=== PATIENT | female | born 1995 | race Caucasian/White ===

== ENCOUNTER 2017-06-23 10:50 | Emergency (ER) | payer MEDICAID ==
[2017-06-23 10:50] VITALS: BMI 23.3
[2017-06-23 11:13] VITALS: BP 114/58; PULSE 101; RESP 18; TEMP 98.6; O2SAT 100
[2017-06-23] MEDS ORDERED: Lidocaine 1% Inj (20ml) IJ ONE (12:05)
[2017-06-23] MEDS ORDERED: Lidocaine 1% Inj (20ml) ONE (12:13)
--- NOTE | 2017-06-23 12:27 | ED PDOC ---
HPI: General Adult Time Seen by Provider: 06/23/17 11:25 Chief Complaint (Nursing): Abnormal Skin Integrity History Per: Patient Additional Complaint(s): Pt. states last night she tripped and fell injuring her R upper lip. Pt. states she did not lose consciousness and she does not have a headache. Denies LOC, neck pain, other injury. Past Medical History Reviewed: Historical Data, Nursing Documentation, Vital Signs Vital Signs: Last Vital Signs Temp 98.6 F 06/23/17 11:07 Pulse 101 H 06/23/17 11:07 Resp 18 06/23/17 11:07 BP 114/58 L 06/23/17 11:07 Pulse Ox 100 06/23/17 12:27 - Family History Family History: States: No Known Family Hx - Home Medications Home Medications: Ambulatory Orders Medication Instructions Recorded Amoxicillin [Amoxil 500 mg Cap] 500 mg PO Q8 #30 cap 06/23/17 - Allergies Allergies/Adverse Reactions: Allergies Allergy/AdvReac Type Severity Reaction Status Date / Time No Known Allergies Allergy Verified 06/23/17 11:25 Review of Systems ROS Statement: Except As Marked, All Systems Reviewed And Found Negative Physical Exam - Physical Exam Appears: Positive for: Well, Non-toxic, No Acute Distress Head Exam: Positive for: ATRAUMATIC, NORMAL INSPECTION, NORMOCEPHALIC Skin: Positive for: Normal Color, Warm. Negative for: Rash Eye Exam: Positive for: EOMI, Normal appearance, PERRL ENT: Positive for: Other (R upper lip with 1.5cm linear superficial lip laceration not extending beyond chris border.) - ECG O2 Sat by Pulse Oximetry: 100 Procedures - Time-Out Type of Procedure: Laceration repair Site of Procedure: upper lip Correct Patient (with visual ID + MR# on ID Band): Yes Correct Procedure: Yes Correct Site Marked: Yes PA/Tech: Usha - Laceration/Wound Repair Laceration repair Wound Length (cm): 1 Wound's Depth, Shape: superficial Wound Explored: clean Irrigated w/ Saline (ccs): 300 Betadine Prep?: Yes Anesthesia: 1% Lidocaine Volume Anesthetic (ccs): 3 Wound Debrided: minimal Wound Repaired With: Sutures Suture Size/Type: 6:0, nylon Number of Sutures: 5 Layer Closure?: No Wound Complexity: Simple Disposition - Clinical Impression Clinical Impression: Lip laceration, Head injury - Patient ED Disposition Is Patient to be Admitted: No - Disposition Referrals: Ryan Costa [Outside] Disposition: Routine/Home Disposition Time: 13:16 Condition: STABLE Prescriptions: Amoxicillin [Amoxil 500 mg Cap] 500 mg PO Q8 #30 cap Instructions: Care For Your Absorbable Stitches (ED), Head Injury (ED) Forms: [employer] ([place])
[2017-06-23] MEDS ORDERED: Povidone Iodine Oint 10% Foilpak UD ONE (12:30)
== END 2017-06-23 13:40 | disposition home or self-care (01) ==
LOC: H.ER 10:50
DX: S01.511A Laceration without foreign body of lip, initial encounter (principal); S09.90XA Unspecified injury of head, initial encounter; W01.0XXA Fall on same level from slipping, tripping and stumbling without subsequent striking against object, initial encounter; Y92.89 Other specified places as the place of occurrence of the external cause

== ENCOUNTER 2017-06-28 17:49 | Emergency (ER) | payer SELFPAY ==
[2017-06-28 17:50] VITALS: BMI 23.3
[2017-06-28 17:59] VITALS: BP 103/65; PULSE 64; RESP 16; TEMP 99; O2SAT 99
--- NOTE | 2017-06-28 18:17 | ED PDOC ---
HPI: Wound Care - HPI Time Seen by Provider: 06/28/17 18:07 Chief Complaint (Nursing): Wound Check Chief Complaint (Provider): Wound Check History Per: Patient Exam Limitations: no limitations Current Symptoms Are (Timing): Still Present Additional Complaint(s): 22 y/o female presents to the ED complaining of pain in right upper lip. Patient has 5 dissolvable sutures in the right upper lip and she pulled two out while eating today. She was seen in the ED few days ago and is here today to get reevalauted. She takes augmentin for pain. Denies any further medical complaints. Past Medical History Reviewed: Historical Data, Nursing Documentation, Vital Signs Vital Signs: Last Vital Signs Temp 99.0 F 06/28/17 17:56 Pulse 64 06/28/17 17:56 Resp 16 06/28/17 17:56 BP 103/65 06/28/17 17:56 Pulse Ox 99 06/28/17 17:56 - Surgical History Surgical History: No Surg Hx - Social History Current smoker - smoking cessation education provided: No Alcohol: None Drugs: Denies - Home Medications Home Medications: Ambulatory Orders Medication Instructions Recorded Amoxicillin [Amoxil 500 mg Cap] 500 mg PO Q8 #30 cap 06/23/17 - Allergies Allergies/Adverse Reactions: Allergies Allergy/AdvReac Type Severity Reaction Status Date / Time No Known Allergies Allergy Verified 06/23/17 11:25 Review of Systems ROS Statement: Except As Marked, All Systems Reviewed And Found Negative (As per HPI, otherwise negative) Constitutional: Positive for: Other (Right upper lip pain) Physical Exam - Reviewed Nursing Documentation Reviewed: Yes Vital Signs Reviewed: Yes - Physical Exam Appears: Positive for: Well, Non-toxic, No Acute Distress Head Exam: Positive for: ATRAUMATIC, NORMAL INSPECTION, NORMOCEPHALIC Skin: Positive for: Normal Color, Warm, Dry Eye Exam: Positive for: Normal appearance ENT: Positive for: Other (Pain in inner right lip but no erythema) Neck: Positive for: Normal, Painless ROM Respiratory: Negative for: Respiratory Distress Neurologic/Psych: Positive for: Alert, Oriented (x3) - ECG O2 Sat by Pulse Oximetry: 99 (RA) Pulse Ox Interpretation: Normal Medical Decision Making Medical Decision Making: Time: 18:16 Upon provider reevaluation patient is feeling better, is medically stable, and requires no further treatment in the ED at this time. Patient will be discharged home. There is agreement to discharge plan. Return if symptoms persist or worsen. Scribe Attestation: Documented by Viki Stoner acting as a scribe for Rowena Garcia MD. Scribe Attestation: All medical record entries made by the Scribe were at my direction and personally dictated by me. I have reviewed the chart and agree that the record accurately reflects my personal performance of the history, physical exam, medical decision making, and the department course for this patient. I have also personally directed, reviewed, and agree with the discharge instructions and disposition. Disposition - Clinical Impression Clinical Impression: Visit for wound check - Patient ED Disposition Is Patient to be Admitted: No Counseled Patient/Family Regarding: Diagnosis, Need For Followup - Disposition Disposition: Routine/Home Disposition Time: 18:16 Condition: GOOD Instructions: Care For Your Absorbable Stitches (ED) Forms: [employer] (I[place]ic)
== END 2017-06-28 18:21 | disposition home or self-care (01) ==
LOC: H.ER 17:49
DX: Z48.00 Encounter for change or removal of nonsurgical wound dressing (principal)